=== PATIENT | male | born 1975 | race Caucasian/White ===

== ENCOUNTER 2017-08-03 21:36 | Observation (INO) | payer BC ==
[2017-08-03] MEDS ORDERED: HYDROMORPHONE HCL INJ/PF 2 MG/ML AMPULE IV ONE (23:25)
[2017-08-03] MEDS ORDERED: NORMAL SALINE 500 ML IV ONE (23:25)
[2017-08-03] MEDS ORDERED: ONDANSETRON HCL INJ/PF 4 MG/2 ML SDV IV ONE (23:25)
[2017-08-03 23:39] LABS: ABSOLUTE EOSINOPHILS # (AUTO) 0.1 10^3/uL (0.0-0.6); ABSOLUTE LYMPHOCYTES (AUTO) 1.5 10^3/uL (0.5-4.7); ABSOLUTE MONOCYTES (AUTO) 1.2 10^3/uL (0.1-1.4); ABSOLUTE NEUT (AUTO) 13.2 10^3/uL (1.7-8.2); BASOPHILS % (AUTO) 0.1 % (0-2); EOSINOPHILS % (AUTO) 0.8 % (0-6); HEMATOCRIT 50.6 % (37.9-51.0); HEMOGLOBIN 17.5 g/dL (13.5-17.0); LYMPHOCYTES % (AUTO) 9.5 % (13-45); MEAN CORPUSCULAR HEMOGLOBIN 29.1 pg (27.0-33.4); MEAN CORPUSCULAR HGB CONC 34.5 g/dL (32.0-36.0); MEAN CORPUSCULAR VOLUME 84 fl (80-97); MONOCYTES % (AUTO) 7.3 % (3-13); PLATELET COUNT 180 10^3/uL (150-450); RED BLOOD COUNT 6.01 10^6/uL (4.35-5.55); SEGMENTED NEUTROPHILS % (AUTO) 82.3 % (42-78); TOTAL CELLS COUNTED % (AUTO) 100 %
[2017-08-03 23:46] LABS: ALANINE AMINOTRANSFERASE 40 U/L (21-72); ALBUMIN 4.2 g/dL (3.5-5.0); ALKALINE PHOSPHATASE 55 U/L (38-126); ANION GAP 12 (5-19); ASPARTATE AMINO TRANSFERASE 19 U/L (17-59); BILIRUBIN,DIRECT 0.3 mg/dL (0.0-0.4); BLOOD UREA NITROGEN 16 mg/dL (7-20); CALCIUM 9.8 mg/dL (8.4-10.2); CARBON DIOXIDE 28 mmol/L (22-30); CHLORIDE 103 mmol/L (98-107); GLUCOSE 103 mg/dL (75-110); LIPASE 93.4 U/L (23-300); POTASSIUM 3.9 mmol/L (3.6-5.0); SODIUM 143.1 mmol/L (137-145)
--- NOTE | 2017-08-04 00:12 | ER Document Report ---
ED General - General Chief Complaint: Abdominal Pain Stated Complaint: ABDOMINAL PAIN Time Seen by Provider: 08/03/17 23:02 Notes: Patient is a 42-year-old male who presents with complaints of right lower quadrant abdominal pain. Some nausea. No vomiting. States the pain started this morning. He went to urgent care was turned feel better and therefore left. He then started having severe pain right lower quadrant and came to the ER. No history of abdominal surgeries other than to have a tamy tack removed when he was a child. No diarrhea. No fevers. He is otherwise healthy and takes no medications. No pain into the testicle scrotal region. No history of inguinal hernia. TRAVEL OUTSIDE OF THE [place] IN LAST 30 DAYS: No - Related Data Allergies/Adverse Reactions: Penicillins Allergy (Intermediate, Verified 08/03/17 21:38) Past Medical History - Social History Smoking Status: Never Smoker Chew tobacco use (# tins/day): No Frequency of alcohol use: Occasional Drug Abuse: None Family History: Reviewed & Not Pertinent Patient has suicidal ideation: No Patient has homicidal ideation: No Renal/ Medical History: Denies: Hx Peritoneal Dialysis Review of Systems - Review of Systems Notes: My Normal Review Basic REVIEW OF SYSTEMS: CONSTITUTIONAL : Denies fever, chills, or sweats. Denies recent illness. EENT: Denies eye, ear, throat, or mouth pain or symptoms. Denies nasal or sinus congestion. RESPIRATORY: Denies cough, cold, or chest congestion. Denies shortness of breath, difficulty breathing, or wheezing. GASTROINTESTINAL: Right Lower quadrant. Nausea no vomiting. GENITOURINARY: Denies difficulty urinating, painful urination, burning, frequency, or blood in urine. MUSCULOSKELETAL: Denies neck or back pain or joint pain or swelling. SKIN: Denies rash or skin lesions. NEUROLOGICAL: Denies altered mental status or loss of consciousness. Denies headache. Denies weakness or paralysis or loss of use of either side. Denies problems with gait or speech. Denies sensory or motor loss. ALL OTHER SYSTEMS REVIEWED AND NEGATIVE. Physical Exam - Vital signs Vitals: Temp Pulse Resp BP Pulse Ox 99.3 F 99 18 118/81 96 08/03/17 22:01 08/03/17 22:01 08/03/17 22:01 08/03/17 22:01 06/04/18 22:01 - Notes Notes: General Appearance: Well nourished, alert, cooperative, no acute distress, moderate obvious discomfort. Vitals: reviewed, See vital signs table. Head: no swelling or tenderness to the head Eyes: PERRL, EOMI, Conjuctiva clear Mouth: No decreasd moisture Lungs: No wheezing, No rales, No rhonci, No accessory muscle use, good air exchange bilaterally. Heart: Normal rate, Regular rythm, No murmur, no rub Abdomen: Normal BS, soft, No rigidity, focal right lower quadrant abdominal tenderness palpation., Mild guarding, no rebound, no abdominal masses, no organomegaly Extremities: strength 5/5 in all extremities, good pulses in all extremities, no swelling or tenderness in the extremities, no edema. Skin: warm, dry, appropriate color, no rash Neuro: speech clear, oriented x 3, normal affect, responds appropriately to questions. Course - Re-evaluation Re-evalutation: 08/04/17 00:21 Patient continues to look well. He still has pain focal to right lower quadrant without pain over the remainder the abdomen. He has a leukocytosis 16, 000 with focal right lower quadrant pain very consistent with that of appendicitis. I did call and speak with Dr. Bruce who agrees. No CT scans needed at this time. He said he will come evaluate the patient 6 AM and most likely taken to the OR from there. Will continue monitor the patient throughout the night. He requested to give the patient antibiotic. I have ordered in advance. He says as a child he was given penicillin. He says he thinks he got a rash but does not quite remember. We will start Invanz if he starts have any itching or rash we will stop immediately. On reevaluation of the patient's abdomen his abdomen continues to be very soft with pain still just local to the right lower quadrant. 08/04/17 03:36 Patient is currently resting comfortably without any distress and has normal vital signs. 08/05/17 04:59 Patient was taken to the OR by Dr. Bruce and patient did have sinus. His care in the ER was uncomplicated and he did well. Dictation of this chart was performed using voice recognition software; therefore, there may be some unintended grammatical errors. - Vital Signs Vital signs: Temp Pulse Resp BP Pulse Ox 98.3 F 74 16 108/65 99 08/05/17 03:47 08/05/17 03:47 08/05/17 03:47 08/05/17 03:47 08/05/17 03:47 - Laboratory Result Diagrams: 08/03/17 22:58 08/03/17 22:58 Laboratory results interpreted by me: 08/03/17 22:58 WBC 16.0 H RBC 6.01 H Hgb 17.5 H Seg Neutrophils % 82.3 H Lymphocytes % 9.5 L Absolute Neutrophils 13.2 H Discharge - Discharge Clinical Impression: RLQ abdominal pain Leukocytosis Qualifiers: Leukocytosis type: unspecified Qualified Code(s): D72.829 - Elevated white blood cell count, unspecified
[2017-08-04] MEDS ORDERED: ERTAPENEM SODIUM INJ 1 GM VIAL IV ONE (00:15)
[2017-08-04] MEDS ORDERED: NORMAL SALINE 1000 ML 1,000 ML IV ONE (00:21)
[2017-08-04 00:33] LABS: APPEARANCE,URINE CLEAR; BILIRUBIN,URINE NEGATIVE (NEGATIVE); COLOR,URINE YELLOW; GLUCOSE, URINE NEGATIVE (NEGATIVE); KETONES,URINE NEGATIVE (NEGATIVE); LEUKOCYTE ESTERASE,URINE NEGATIVE (NEGATIVE); NITRITE,URINE NEGATIVE (NEGATIVE); PROTEIN,URINE NEGATIVE (NEGATIVE); URINE SPECIFIC GRAVITY 1.025; UROBILINOGEN,URINE NEGATIVE mg/dL (<2.0)
[2017-08-04] MEDS ORDERED: BUPIVACAINE HCL 0.25 % INJ/PF (2.5 MG/1 ML) 30 ML VIAL ONE (04:06)
[2017-08-04] MEDS ORDERED: FENTANYL CITRATE INJ/PF 100 MCG/2 ML AMPUL ONE ×2 (04:18→04:19)
[2017-08-04] MEDS ORDERED: DEXAMETHASONE SOD PHOSPHATE INJ 4 MG/1 ML VIAL ONE (04:19)
[2017-08-04] MEDS ORDERED: MORPHINE SULFATE 10 MG/ML INJ ONE (04:19)
[2017-08-04] MEDS ORDERED: PROPOFOL INJ 200 MG/20 ML VIAL IV ONE (04:19)
[2017-08-04] MEDS ORDERED: MIDAZOLAM 2 MG/2 ML INJ ONE (04:19)
[2017-08-04] MEDS ORDERED: ONDANSETRON HCL INJ/PF 4 MG/2 ML SDV ONE (04:19)
--- NOTE | 2017-08-04 04:24 | PDOC H&P ---
History of Present Illness Patient complains of: Abdominal pain History of Present Illness: CHIKIS MOTT is a 42 year old male Presents to the emergency department complaining of acute onset abdominal pain, diffuse then localized to the right lower. Last bowel movement 9:00 AM yesterday, normal. Pain persisted, patient seen at urgent care, then declined service as he was feeling better. Pain persisted, patient came to the emergency department where he was found to have localized right lower quadrant tenderness and leukocytosis. Gnosis of acute appendicitis is entertained. Surgery was consulted patient was evaluated, and advised admission and definitive management. Patient denies dysuria. No history of trauma. No history of previous symptoms. Past Medical History Medical History: None Past Surgical History Past Surgical History: Reports: Orthopedic Surgery, Other - Right ankle surgery ; history of foreign body ingestion with extraction Social History Information Source: Patient Lives with: Family Smoking Status: Never Smoker Frequency of Alcohol Use: Occasional Hx Recreational Drug Use: No Hx Prescription Drug Abuse: No Family History Family History: Reviewed & Not Pertinent Parental Family History Reviewed: Yes Children Family History Reviewed: Yes Sibling(s) Family History Reviewed.: Yes Medication/Allergy Allergies/Adverse Reactions: Penicillins Allergy (Intermediate, Verified 08/03/17 21:38) Review of Systems Constitutional: ABSENT: chills, fever(s), headache(s), weight gain, weight loss Eyes: ABSENT: visual disturbances Ears: ABSENT: hearing changes Cardiovascular: ABSENT: chest pain, dyspnea on exertion, edema, orthropnea, palpitations Respiratory: ABSENT: cough, hemoptysis Gastrointestinal: PRESENT: as per HPI Genitourinary: ABSENT: dysuria, hematuria Musculoskeletal: ABSENT: joint swelling Integumentary: ABSENT: rash, wounds Neurological: ABSENT: abnormal gait, abnormal speech, confusion, dizziness, focal weakness, syncope Physical Exam Vital Signs: Temp Pulse Resp BP Pulse Ox 98.6 F 87 17 118/72 100 08/04/17 03:47 08/04/17 03:47 08/04/17 03:47 08/04/17 03:47 08/04/17 03:47 Intake & Output 08/02/17 08/03/17 08/04/17 06:59 06:59 06:59 Weight 92.7 kg General appearance: PRESENT: mild distress Head exam: PRESENT: normocephalic Eye exam: PRESENT: EOMI Ear exam: PRESENT: normal external ear exam Mouth exam: PRESENT: dry mucosa Neck exam: PRESENT: full ROM Respiratory exam: PRESENT: clear to auscultation radha Cardiovascular exam: PRESENT: RRR Pulses: PRESENT: normal carotid pulses, normal radial pulses, normal femoral pulses Vascular exam: PRESENT: normal capillary refill GI/Abdominal exam: PRESENT: other - Focal right lower tenderness with guarding right at McBurney's point. No rigidity no hernias no masses Rectal exam: PRESENT: deferred Extremities exam: PRESENT: full ROM Musculoskeletal exam: PRESENT: full ROM Neurological exam: PRESENT: alert, awake, oriented to person, oriented to place , oriented to time, oriented to situation Psychiatric exam: PRESENT: appropriate affect Skin exam: PRESENT: dry Results Laboratory Results: 08/03/17 22:58 08/03/17 22:58 08/03/17 08/03/17 08/04/17 22:58 22:58 00:14 WBC 16.0 H RBC 6.01 H Hgb 17.5 H Hct 50.6 MCV 84 MCH 29.1 MCHC 34.5 RDW 13.0 Plt Count 180 Seg Neutrophils % 82.3 H Lymphocytes % 9.5 L Monocytes % 7.3 Eosinophils % 0.8 Basophils % 0.1 Absolute Neutrophils 13.2 H Absolute Lymphocytes 1.5 Absolute Monocytes 1.2 Absolute Eosinophils 0.1 Absolute Basophils 0.0 Sodium 143.1 Potassium 3.9 Chloride 103 Carbon Dioxide 28 Anion Gap 12 BUN 16 Creatinine 1.13 Est GFR ( Amer) > 60 Est GFR (Non-Af Amer) > 60 Glucose 103 Calcium 9.8 Total Bilirubin 1.0 AST 19 ALT 40 Alkaline Phosphatase 55 Total Protein 7.0 Albumin 4.2 Lipase 93.4 Urine Color YELLOW Urine Appearance CLEAR Urine pH 5.0 Ur Specific [place] 1.025 Urine Protein NEGATIVE Urine Glucose (UA) NEGATIVE Urine Ketones NEGATIVE Urine Blood NEGATIVE Urine Nitrite NEGATIVE Ur Leukocyte Esterase NEGATIVE Urine WBC (Auto) 2 Urine RBC (Auto) 1 Assessment & Plan - Diagnosis (1) RLQ abdominal pain Is this a current diagnosis for this admission?: Yes Plan: Acute onset right lower quadrant pain, right lower quadrant tenderness with progression, leukocytosis in the absence of other symptoms most consistent with acute appendicitis Recommendations: 1. Proceed with admission, IV fluids, IV antibiotics, and plan laparoscopic, possible open appendectomy; Risks benefits and alternatives of planned procedure explained to patient. He expresses understanding agrees to proceed. - Time Time Spent: 30 to 50 Minutes Critical Time spent with patient: Less than 15 minutes Medications reviewed and adjusted accordingly: Yes Anticipated discharge: Home - Inpatient Certification Based on my medical assessment, after consideration of the patient's comorbidities, presenting symptoms, or acuity I expect that the services needed warrant INPATIENT care.: Yes I certify that my determination is in accordance with my understanding of Medicare's requirements for reasonable and necessary INPATIENT services [42 CFR 412.3e].: Yes Medical Necessity: Need For IV Fluids, Need for Pain Control, Need for IV Antibiotics, Need for Surgery
[2017-08-04] MEDS ORDERED: PROMETHAZINE HCL INJ 25 MG/1 ML VIAL IV PRN ×2 (05:06)
[2017-08-04] MEDS ORDERED: MORPHINE SULFATE 10 MG/ML INJ IV PRN (05:06)
[2017-08-04] MEDS ORDERED: FENTANYL CITRATE INJ/PF 100 MCG/2 ML AMPUL IV PRN ×3 (05:06)
[2017-08-04] MEDS ORDERED: ONDANSETRON HCL INJ/PF 4 MG/2 ML SDV IV PRN ×2 (05:06→05:42)
[2017-08-04] MEDS ORDERED: MEPERIDINE HCL/PF INJ 25 MG/1 ML DISP.SYRIN IV PRN (05:06)
[2017-08-04] MEDS ORDERED: DIPHENHYDRAMINE HCL 50 MG/ML VIAL IV PRN (05:06)
[2017-08-04] MEDS ORDERED: KETOROLAC TROMETHAMINE INJ/PF 30 MG/1 ML SDV IV PRN (05:42)
[2017-08-04] MEDS ORDERED: KETOROLAC TROMETHAMINE 10 MG TABLET PO PRN (05:42)
--- NOTE | 2017-08-04 05:52 | Operative Report ---
Operative Report DATE OF SURGERY: 08/04/17 PREOPERATIVE DIAGNOSIS: Acute appendicitis POSTOPERATIVE DIAGNOSIS: Acute, separative appendicitis OPERATION: Laparoscopic appendectomy with drain placement SURGEON: BOBBY ZAPATA ANESTHESIA: GA TISSUE REMOVED OR ALTERED: 1 appendix COMPLICATIONS: None ESTIMATED BLOOD LOSS: Medical INTRAOPERATIVE FINDINGS: Acute suppurative pre-rupturing appendix PROCEDURE: The patient was taken to the preop holding area to the main operating room where general anesthesia was induced. Patient had voided prior to arrival. Arms abducted, abdomen clipped of hair, prepped and draped in a sterile fashion. Instrumentation set up for laparoscopic appendectomy. Surgical plan surgical timeout were conducted. Markings were made on the skin for 3 port appendectomy. Skin was anesthetized with 1% plain lidocaine above the umbilicus, and the suprapubic area in the left lower quadrant. A vertically oriented incision was made just above the umbilicus. Veress needle was inserted into the peritoneal cavity pneumoperitoneum was established. Veress needle was removed, 5 mm port was inserted, 5 mm flexible viewing scope was inserted. Under direct visualization 2 additional ports were placed one 5 mm in the suprapubic region midline, and the left lower quadrant 12 mm port. Patient was placed in Trendelenburg position and rotated to the left side. The findings were significant for acute, suppurative appendicitis with the appendix located in a retrocecal position. Using a combination of blunt, and suction dissection, as well as LigaSure dissector, I was able to bluntly mobilize the firm, enlarged thickened acutely inflamed appendix extending cephalad behind the cecum up into the free peritoneal space. All attachments were broken up such that the appendix was now suspended solely from its base. These were taken. We now brought onto the field a 45 mm Endo AD, blue load stapler the appendix was amputated at its base with a single firing. The specimen was now placed in an Endobag uneventfully. Of note during the mobilization of the appendix, there was some purulent discharge leaking around the appendix. Prior to this manipulation, there was no of peritonitis. Because of this localized contamination, only minimal limited irrigation was performed. There was no significant bleeding. We inspected the staple line at the cecum it was intact. A large Joe drain was placed through the supraumbilical port site, trimmed to the appropriate length, and laid against the retroperitoneum on the right side. Sponge and needle counts are correct. All ports removed under direct visualization, Joe drain secured with 2-0 Prolene suture and all wounds closed with 3-0 Vicryl benzoin and Steri-Strips. Patient tolerated procedure well, extubated, and taken to recovery in stable condition.
[2017-08-04] MEDS: FENTANYL CITRATE INJ/PF 100 MCG/2 ML AMPUL ONE ×2 (06:10→06:15)
[2017-08-04] MEDS ORDERED: MORPHINE SULFATE 10 MG/ML INJ IV ONE (09:00)
[2017-08-04] MEDS ORDERED: ERTAPENEM SODIUM 1 GM in NORMAL SALINE 50 ML IV SCH (10:00)
[2017-08-04] MEDS: OXYCODONE-ACETAMINOPHEN 5-325 MG TABLET PO PRN ×2 (12:56→21:50)
[2017-08-04] MEDS ORDERED: ROCURONIUM BROMIDE INJ 50 MG/5 ML VIAL IV ONE (19:47)
[2017-08-04] MEDS ORDERED: SUCCINYLCHOLINE CHLORIDE INJ 200 MG/10 ML VIAL ONE (19:47)
[2017-08-05 07:19] VITALS: BP 114/67
[2017-08-05] MEDS: OXYCODONE-ACETAMINOPHEN 5-325 MG TABLET PO PRN (08:05)
== END 2017-08-05 11:18 | disposition home or self-care (01) ==
LOC: ER 21:36 → EH 08-04 04:28 → 3N 08-04 06:55
PROVIDERS: ATTEND Surgery
PROC: 0DTJ4ZZ Resection of Appendix, Percutaneous Endoscopic Approach (ICD-10-PCS; principal; 2017-08-03)
DX: K35.3 Acute appendicitis with localized peritonitis (principal); Z98.890 Other specified postprocedural states
CPT/HCPCS: 99285; 96361; 96375; 96365; 36415; 83690; 85025; 80053; 81001; 88304 ×2; 44970; G0378 ×4; J2250; J3490; J1100; J3010; J1335; J1885; J2270; J1170; J0330; J2405 ×2; J7030; J7040; J2704; 840

== ENCOUNTER 2017-08-24 09:23 | Inpatient (IN) | payer BC ==
[2017-08-24 10:17] LABS: ABSOLUTE MONOCYTES (AUTO) 1.4 10^3/uL (0.1-1.4); ABSOLUTE NEUT (AUTO) 13.5 10^3/uL (1.7-8.2); BASOPHILS % (AUTO) 0.3 % (0-2); EOSINOPHILS % (AUTO) 0.2 % (0-6); HEMATOCRIT 42.5 % (37.9-51.0); HEMOGLOBIN 14.9 g/dL (13.5-17.0); LYMPHOCYTES % (AUTO) 6.3 % (13-45); MEAN CORPUSCULAR VOLUME 83 fl (80-97); MONOCYTES % (AUTO) 8.6 % (3-13); PLATELET COUNT 274 10^3/uL (150-450); RED BLOOD COUNT 5.14 10^6/uL (4.35-5.55); RED CELL DISTRIBUTION WIDTH 12.6 % (11.5-14.0); SEGMENTED NEUTROPHILS % (AUTO) 84.6 % (42-78); TOTAL CELLS COUNTED % (AUTO) 100 %; WHITE BLOOD COUNT 15.9 10^3/uL (4.0-10.5)
[2017-08-24 10:30] LABS: BILIRUBIN,URINE NEGATIVE (NEGATIVE); GLUCOSE, URINE NEGATIVE (NEGATIVE); KETONES,URINE NEGATIVE (NEGATIVE); LEUKOCYTE ESTERASE,URINE NEGATIVE (NEGATIVE); NITRITE,URINE NEGATIVE (NEGATIVE); PROTEIN,URINE 30 mg/dL (NEGATIVE); URINE SPECIFIC GRAVITY 1.032; UROBILINOGEN,URINE NEGATIVE mg/dL (<2.0)
[2017-08-24 10:37] LABS: APPEARANCE,URINE SLIGHTLY-CLOUDY; COLOR,URINE YELLOW
[2017-08-24 10:47] LABS: ALANINE AMINOTRANSFERASE 33 U/L (21-72); ALBUMIN 3.7 g/dL (3.5-5.0); ALKALINE PHOSPHATASE 63 U/L (38-126); ANION GAP 14 (5-19); ASPARTATE AMINO TRANSFERASE 20 U/L (17-59); BILIRUBIN,DIRECT 0.5 mg/dL (0.0-0.4); BILIRUBIN,TOTAL 0.6 mg/dL (0.2-1.3); BLOOD UREA NITROGEN 18 mg/dL (7-20); CALCIUM 9.6 mg/dL (8.4-10.2); CARBON DIOXIDE 25 mmol/L (22-30); CHLORIDE 105 mmol/L (98-107); GLUCOSE 102 mg/dL (75-110); POTASSIUM 4.1 mmol/L (3.6-5.0); SODIUM 143.7 mmol/L (137-145); TOTAL PROTEIN 6.7 g/dL (6.3-8.2)
--- NOTE | 2017-08-24 13:51 | RADIOLOGY REPORT (SQ) ---
EXAM DESCRIPTION: CT ABD/PELVIS ORAL ONLY COMPLETED DATE/TIME: 08/24/2017 1:31 pm REASON FOR STUDY: RLQ PAIN(R10.31), FEVER (R50.9),ACQUIRED ABSENCE OF OTHER SPECIFIED PARTS O R10.31 RIGHT LOWER QUADRANT PAIN R50.9 FEVER, UNSPECIFIED Z90.49 ACQUIRED ABSENCE OF OTHER SPECIFIED PAR TS OF DIGESTIV COMPARISON: None. TECHNIQUE: CT scan of the abdomen and pelvis performed with oral contrast and no intravenous contras t. Images reviewed with lung, soft tissue, and bone windows. Reconstructed coronal and sagittal MPR i mages reviewed. All images stored on PACS. All CT scanners at this facility use dose modulation, iterative reconstruction, and/or weight based d osing when appropriate to reduce radiation dose to as low as reasonably achievable (ALARA). [facility]: Dose Right [facility]: CareDose [facility]: Dose Right [facility]: Teradose 4D [facility]: [employer] RADIATION DOSE: CT Rad equipment meets quality standard of care and radiation dose reduction techniq ues were employed. CTDIvol: 7.8 mGy. DLP: 442 mGy-cm.mGy. LIMITATIONS: None. FINDINGS: LOWER CHEST: No significant findings. No nodules or infiltrates. NON-CONTRASTED LIVER, SPLEEN, ADRENALS: Evaluation limited by lack of IV contrast. No identified sign ificant masses. PANCREAS: No masses. No peripancreatic inflammatory changes. GALLBLADDER: No identified stones by CT criteria. No inflammatory changes to suggest cholecystitis. RIGHT KIDNEY AND URETER: No solid masses. No significant calcification. No hydronephrosis or hydroure ter. LEFT KIDNEY AND URETER: No solid masses. No significant calcification. No hydronephrosis or hydrouret er. AORTA AND RETROPERITONEUM: No aneurysm. No retroperitoneal masses or adenopathy. BOWEL AND PERITONEAL CAVITY: No obvious masses or inflammatory changes. No free fluid. APPENDIX: Surgically absent. There is heterogenous material extending from the end of the cecum in a cephalad direction posterior to the ascending colon to the tip of the liver. This material has hete rogenous mixed density interspersed in the pericolonic fat. There is no focal clear-cut fluid collec tion at this time. Maximum transverse measurement 4 cm and overall length of involvement in the cran iocaudal direction is 9 cm. There are enlarged lymph nodes in the adjacent mesenteric. PELVIS, BLADDER, AND ABDOMINAL WALL: No abnormal pelvic masses. No abdominal wall hernias. Bladder un remarkable. BONES: No significant findings. OTHER: No other significant finding. IMPRESSION: 1. POST APPENDECTOMY WITH HETEROGENOUS MATERIAL AT THE SURGICAL SITE DESCRIBED. GIVEN THE CLINICA L HISTORY, THIS MOST LIKELY REPRESENTS POSTOPERATIVE INFECTION WITH DEVELOPING ABSCESS AND/OR INFECTE D HEMATOMA. THE HETEROGENOUS MATERIAL IS INTERSPERSED IN THE PERICOLONIC FAT AND THERE IS NO FOCAL D ISCRETE DRAINABLE FLUID COLLECTION AT THIS TIME. 2. NO OTHER SIGNIFICANT FINDINGS. TECHNICAL DOCUMENTATION: JOB ID: [id number] Quality ID # [id number]: Final reports with documentation of one or more dose reduction techniques (e.g., Au tomated exposure control, adjustment of the mA and/or kV according to patient size, use of iterative reconstruction technique) 2010 [employer]- All Rights Reserved Reading location - IP/workstation name: [email or web address]
[2017-08-24] MEDS ORDERED: KETOROLAC TROMETHAMINE INJ/PF 30 MG/1 ML SDV IV PRN (14:47)
[2017-08-24] MEDS: AMPICILLIN SODIUM/SULBACTAM NA 3 GM in NORMAL SALINE 100 ML IV SCH (18:21)
[2017-08-24] MEDS: KETOROLAC TROMETHAMINE INJ/PF 30 MG/1 ML SDV IV PRN (18:24)
--- NOTE | 2017-08-24 19:48 | PDOC H&P ---
History of Present Illness Admission Date/PCP: 08/24/17 15:57 SARATH ELIZALDE PA-C Patient complains of: Abdominal pain, fevers History of Present Illness: CHIKIS MOTT is a 42 year old male Now 3 weeks status post laparoscopic appendectomy for acute appendicitis by Dr. Bruce [facility]. This was a retrocecal appendix with appendiceal inflammation. He had a drain placed and this was removed postoperative day 2. Patient was discharged home on total days of p.o. antibiotics. Patient was seen at [facility] approximately 2 weeks ago, and was cleared for return to regular activities as he was doing well. Patient return to work and did fine until 3 days ago when he developed fever chills and shaking sensation, decreased urine output and right lower quadrant tenderness. Because of persisting symptoms he was seen at [facility] this morning where he was sent then to [facility] for blood work and CT scan which revealed a leukocytosis left shift and the scan showed retrocecal amatory changes consistent with evolving abscess. Patient was admitted to the surgical service for management of postoperative intra- abdominal infection Past Surgical History Past Surgical History: Reports: Appendectomy, Orthopedic Surgery, Other - Right ankle surgery; history of foreign body ingestion with extraction Social History Smoking Status: Never Smoker Frequency of Alcohol Use: Occasional Hx Recreational Drug Use: No Drugs: None Hx Prescription Drug Abuse: No - Advance Directive Resuscitation Status: Full Code Family History Family History: Reviewed & Not Pertinent Parental Family History Reviewed: Yes Children Family History Reviewed: Yes Sibling(s) Family History Reviewed.: Yes Medication/Allergy Home Medications: No Home Medications 08/24/17 Allergies/Adverse Reactions: Penicillins Allergy (Intermediate, Verified 08/03/17 21:38) Review of Systems Constitutional: PRESENT: as per HPI Eyes: ABSENT: visual disturbances Ears: ABSENT: hearing changes Cardiovascular: ABSENT: chest pain, dyspnea on exertion, edema, orthropnea, palpitations Gastrointestinal: ABSENT: abdominal pain, constipation, diarrhea, hematemesis, hematochezia, nausea, vomiting Genitourinary: PRESENT: other - Dark urine Musculoskeletal: ABSENT: joint swelling Integumentary: ABSENT: rash, wounds Physical Exam Vital Signs: Temp Pulse Resp BP Pulse Ox 99.7 F 103 H 18 130/83 H 97 08/24/17 16:25 08/24/17 16:25 08/24/17 16:25 08/24/17 16:25 08/24/17 16:25 Intake & Output 08/23/17 08/24/17 08/25/17 06:59 06:59 06:59 Weight 90.446 kg General appearance: PRESENT: no acute distress Head exam: PRESENT: normocephalic Eye exam: PRESENT: EOMI Mouth exam: PRESENT: dry mucosa Neck exam: PRESENT: full ROM Respiratory exam: PRESENT: clear to auscultation radha Cardiovascular exam: PRESENT: RRR Pulses: PRESENT: normal carotid pulses, normal radial pulses, normal femoral pulses GI/Abdominal exam: PRESENT: other - Operative incisions well-healed; no peritoneal signs no rigidity; some right lower quadrant tenderness; there is right flank tenderness. No cellulitic changes Rectal exam: PRESENT: deferred Extremities exam: PRESENT: full ROM Musculoskeletal exam: PRESENT: full ROM Neurological exam: PRESENT: alert, awake, oriented to person, oriented to place , oriented to time, oriented to situation Results Laboratory Results: 08/24/17 10:11 08/24/17 10:11 08/24/17 08/24/17 08/24/17 10:11 10:11 10:11 WBC 15.9 H RBC 5.14 Hgb 14.9 Hct 42.5 MCV 83 MCH 29.0 MCHC 35.0 RDW 12.6 Plt Count 274 Seg Neutrophils % 84.6 H Lymphocytes % 6.3 L Monocytes % 8.6 Eosinophils % 0.2 Basophils % 0.3 Absolute Neutrophils 13.5 H Absolute Lymphocytes 1.0 Absolute Monocytes 1.4 Absolute Eosinophils 0.0 Absolute Basophils 0.0 Sodium 143.7 Potassium 4.1 Chloride 105 Carbon Dioxide 25 Anion Gap 14 BUN 18 Creatinine 1.16 Est GFR ( Amer) > 60 Est GFR (Non-Af Amer) > 60 Glucose 102 Calcium 9.6 Total Bilirubin 0.6 AST 20 ALT 33 Alkaline Phosphatase 63 Total Protein 6.7 Albumin 3.7 Urine Color YELLOW Urine Appearance SLIGHTLY-CLOUDY Urine pH 5.0 Ur Specific [place] 1.032 Urine Protein 30 H Urine Glucose (UA) NEGATIVE Urine Ketones NEGATIVE Urine Blood NEGATIVE Urine Nitrite NEGATIVE Ur Leukocyte Esterase NEGATIVE Urine WBC (Auto) 1 Urine RBC (Auto) 0 Impressions: Abdomen/Pelvis CT 08/24/17 09:57 IMPRESSION: 1. POST APPENDECTOMY WITH HETEROGENOUS MATERIAL AT THE SURGICAL SITE DESCRIBED. GIVEN THE CLINICAL HISTORY, THIS MOST LIKELY REPRESENTS POSTOPERATIVE INFECTION WITH DEVELOPING ABSCESS AND/OR INFECTED HEMATOMA. THE HETEROGENOUS MATERIAL IS INTERSPERSED IN THE PERICOLONIC FAT AND THERE IS NO FOCAL DISCRETE DRAINABLE FLUID COLLECTION AT THIS TIME. 2. NO OTHER SIGNIFICANT FINDINGS. Assessment & Plan - Diagnosis (1) Postoperative abscess Is this a current diagnosis for this admission?: Yes Plan: Clinical history laboratory profile and CT scan findings all consistent with postoperative intra-abdominal infection, specifically right retrocecal the descending colon phlegmon Recommendations: 1. Admit to surgical service, IV fluids, intravenous antibiotics 2. Discuss with Dr. Lee, interventional radiologist tomorrow, possibility of percutaneous drainage, at least aspiration of the retrocecal collection. 3. Switch patient from Unasyn to clindamycin. (2) Status post laparoscopic appendectomy Is this a current diagnosis for this admission?: Yes - Time Time Spent: 30 to 50 Minutes Critical Time spent with patient: Less than 15 minutes Medications reviewed and adjusted accordingly: Yes Anticipated discharge: Home
[2017-08-24] MEDS: ACETAMINOPHEN 325 MG TABLET PO PRN (20:42)
[2017-08-24] MEDS: CLINDAMYCIN 900 MG/D5W RTU 900 MG/50 ML RTUPB IV SCH (21:53)
[2017-08-24] MEDS ORDERED: AMPICILLIN SODIUM/SULBACTAM NA 3 GM in NORMAL SALINE 100 ML IV SCH (22:00)
[2017-08-25] MEDS: AMPICILLIN SODIUM/SULBACTAM NA 3 GM in NORMAL SALINE 100 ML IV SCH (01:20)
[2017-08-25] MEDS: ACETAMINOPHEN 325 MG TABLET PO PRN ×3 (03:20→21:38)
[2017-08-25] MEDS: CLINDAMYCIN 900 MG/D5W RTU 900 MG/50 ML RTUPB IV SCH ×3 (05:08→21:39)
[2017-08-25] MEDS: NORMAL SALINE 1000 ML 1,000 ML IV PRN ×3 (07:33→21:44)
[2017-08-25] MEDS: KETOROLAC TROMETHAMINE INJ/PF 30 MG/1 ML SDV IV PRN ×2 (08:08→14:57)
[2017-08-25 08:45] LABS: INTERNATIONAL RATION (INR) 1.06; PARTIAL THROMBOPLASTIN TIME 35.4 SEC (23.5-35.8); PROTHROMBIN TIME 14.3 SEC (11.4-15.4)
[2017-08-25] MEDS ORDERED: NORMAL SALINE 500 ML IV ONE (09:30)
[2017-08-25] MEDS ORDERED: MIDAZOLAM 2 MG/2 ML INJ ONE (10:43)
[2017-08-25] MEDS ORDERED: FENTANYL CITRATE INJ/PF 100 MCG/2 ML AMPUL ONE ×2 (10:44→11:20)
[2017-08-25] MEDS ORDERED: LIDOCAINE 1% INJ-PF (10 MG/ML) 30 ML SDV ONE (10:44)
--- NOTE | 2017-08-25 12:37 | RADIOLOGY REPORT (SQ) ---
EXAM DESCRIPTION: CT GUIDED PERCUT DRAIN W/CATH COMPLETED DATE/TIME: 08/25/2017 12:10 pm REASON FOR STUDY: ABCESS. HAS SPOKE WITH DR. BAER R10.31 RIGHT LOWER QUADRANT PAIN R50.9 FEVER, UNSPECIFIED Z90.49 ACQUIRED ABSENCE OF OTHER SPECIFIED PARTS OF DIGESTIV COMPARISON: None. TECHNIQUE: After obtaining informed consent and explaining the risks and benefits of conscious sedat ion,the patient agreed to the procedure. The patient was brought to the CT suite and was placed supin e on the CT gurney. The patient was prepped and draped in the usual sterile fashion . Axial images w ere obtained for targeting of theretrocecal abscess. An appropriate access site was selected. IV conscious sedation was administered and physician direction by the registered nurse using 1 millig ian of Versed and 100 micrograms of fentanyl. Physiologic monitoring was provided before, during, an d after sedation. The total sedation time was 30 minutes. Documentation face to face time, the performing proceduralist, spent monitoring the patient: 10minute s. Noncontrasted CT of the right lower quadrant was performed to localize an approach for the retroceca l abscess drainage. A percutaneous site was marked. Time out was performed. After skin prep and local lidocaine for skin and deep tissue anesthesia, an 18 gauge needle was used to access to retrocecal abscess. 10 mL of green foul-smelling purulent material was obtained, sent for Gram stain culture and sensitivity to microbiology. At this point, a 0.38 guidewire was passed t hrough the 18 gauge needle into the abscess cavity, the tract was dilated with an 8 [place] dilator an d 10 [place] dilator, and a 10 [place] locking pigtail catheter was placed with the pigtail loop in the retrocecal abscess. Pigtail catheter was locked in place, and secured to the patient's skin to a gr avity drainage bag. No immediate postprocedure complications. Total of 6.[address] fluoro was used. 36 CT Fluoroscopic images were obtained and saved to PACS. All CT scanners at this facility use dose modulation, iterative reconstruction, and/or weight based d osing when appropriate to reduce radiation dose to as low as reasonably achievable (ALARA). [facility]: Dose Right [facility]: CareDose [facility]: Dose Right [facility]: Teradose 4D [facility]: [employer] RADIATION DOSE: CT Rad equipment meets quality standard of care and radiation dose reduction techniq ues were employed. CTDIvol: 19.8 mGy. DLP: 390 mGy-cm. mGy. LIMITATIONS: None. FINDINGS: CT guided retrocecal abscess drainage with 10 [place] locking pigtail catheter. IV conscio us sedation IMPRESSION: CT GUIDED RETROCECAL ABSCESS DRAINAGE PERFORMED ABOVE. INDWELLING 10 LITHUANIAN LOCKING PIGTAIL CATHETER TO GRAVITY SUCTION. SPECIMEN OF ABSCESS FLUID WAS SENT FOR GRAM STAIN CULTURE AND SENSITIVITY WHICH IS PENDING. IV CONSCIOUS SEDATION COMMENT: Patient medication list reviewed:Yes- Quality ID# [id number]:Eligible professional attests to docu menting in the medical record they obtained, updated, or reviewed the patient's current medications.. Quality ID [id number]: Final reports for procedures using fluoroscopy that document radiation exposure clare rambo, or exposure time and number of fluorographic images (if radiation exposure indices are not avail able) TECHNICAL DOCUMENTATION: JOB ID: [id number] Quality ID # [id number]: Final reports with documentation of one or more dose reduction techniques (e.g., A utomated exposure control, adjustment of the mA and/or kV according to patient size, use of iterative reconstruction technique) 2010 [employer]- All Rights Reserved Reading location - IP/workstation name: [email or web address]
[2017-08-25 13:18] LABS: FLUID APPEARANCE OPAQUE; FLUID COLOR YELLOW; FLUID VISCOSITY HIGHLY VISCOUS
[2017-08-25 13:19] LABS: FLUID TYPE ABCESS
--- NOTE | 2017-08-25 16:02 | PDOC PROGRESS REPORT ---
Subjective Progress Note for:: 08/25/17 Subjective:: RLQ pains Reason For Visit: RETROCECAL ABSCESS Physical Exam Vital Signs: Temp Pulse Resp BP Pulse Ox 100.2 F 97 16 106/65 96 08/25/17 08:23 08/25/17 08:23 08/25/17 08:23 08/25/17 08:23 08/25/17 08:23 Intake & Output 08/24/17 08/25/17 08/26/17 06:59 06:59 06:59 Intake Total 1200 Balance 1200 Weight 90.4 kg Exam: Successful placement of Drainage cath to retroperitoneal abscess by IR Dr Stan Elias. Specimen for C/S collected and sent to Lab. Results Laboratory Results: 08/24/17 10:11 08/24/17 10:11 08/25/17 11:20 Fluid Type ABCESS Fluid Source Fluid Color YELLOW Fluid Appearance OPAQUE Fluid Viscosity HIGHLY VISCOUS Fluid WBC [id number] Fluid RBC 878 Impressions: Abdomen/Pelvis CT 08/24/17 09:57 IMPRESSION: 1. POST APPENDECTOMY WITH HETEROGENOUS MATERIAL AT THE SURGICAL SITE DESCRIBED. GIVEN THE CLINICAL HISTORY, THIS MOST LIKELY REPRESENTS POSTOPERATIVE INFECTION WITH DEVELOPING ABSCESS AND/OR INFECTED HEMATOMA. THE HETEROGENOUS MATERIAL IS INTERSPERSED IN THE PERICOLONIC FAT AND THERE IS NO FOCAL DISCRETE DRAINABLE FLUID COLLECTION AT THIS TIME. 2. NO OTHER SIGNIFICANT FINDINGS. Percutaneous Drainage 08/25/17 00:00 IMPRESSION: CT GUIDED RETROCECAL ABSCESS DRAINAGE PERFORMED ABOVE. INDWELLING 10 SWISS LOCKING PIGTAIL CATHETER TO GRAVITY SUCTION. SPECIMEN OF ABSCESS FLUID WAS SENT FOR GRAM STAIN CULTURE AND SENSITIVITY WHICH IS PENDING. IV CONSCIOUS SEDATION Assessment & Plan - Time Time Spent with patient: 15-24 minutes - Plan Summary Plan Summary: Continue IV antibiotics
[2017-08-26] MEDS: CLINDAMYCIN 900 MG/D5W RTU 900 MG/50 ML RTUPB IV SCH ×3 (05:30→21:22)
[2017-08-26] MEDS: KETOROLAC TROMETHAMINE INJ/PF 30 MG/1 ML SDV IV PRN ×2 (08:48→23:45)
--- NOTE | 2017-08-26 14:14 | PDOC PROGRESS REPORT ---
Subjective Progress Note for:: 08/26/17 Subjective:: Feels more comfortable today Reason For Visit: RETROCECAL ABSCESS Physical Exam Vital Signs: Temp Pulse Resp BP Pulse Ox 98.5 F 66 14 111/72 98 08/26/17 03:20 08/26/17 03:20 08/26/17 03:20 08/26/17 03:20 08/26/17 03:20 Intake & Output 08/25/17 08/26/17 08/27/17 06:59 06:59 06:59 Intake Total 1200 5306 Balance 1200 5306 Weight 90.4 kg 96.6 kg 96.6 kg Exam: Drain about 30 ccs bloody fluid Abd is soft and non tender Results Laboratory Results: 08/24/17 10:11 08/24/17 10:11 Impressions: Abdomen/Pelvis CT 08/24/17 09:57 IMPRESSION: 1. POST APPENDECTOMY WITH HETEROGENOUS MATERIAL AT THE SURGICAL SITE DESCRIBED. GIVEN THE CLINICAL HISTORY, THIS MOST LIKELY REPRESENTS POSTOPERATIVE INFECTION WITH DEVELOPING ABSCESS AND/OR INFECTED HEMATOMA. THE HETEROGENOUS MATERIAL IS INTERSPERSED IN THE PERICOLONIC FAT AND THERE IS NO FOCAL DISCRETE DRAINABLE FLUID COLLECTION AT THIS TIME. 2. NO OTHER SIGNIFICANT FINDINGS. Percutaneous Drainage 08/25/17 00:00 IMPRESSION: CT GUIDED RETROCECAL ABSCESS DRAINAGE PERFORMED ABOVE. INDWELLING 10 CHILEAN LOCKING PIGTAIL CATHETER TO GRAVITY SUCTION. SPECIMEN OF ABSCESS FLUID WAS SENT FOR GRAM STAIN CULTURE AND SENSITIVITY WHICH IS PENDING. IV CONSCIOUS SEDATION Assessment & Plan - Time Time Spent with patient: 15-24 minutes - Plan Summary Plan Summary: Continue IV antibiotics 24-48 hrs Increase diet
[2017-08-26] MEDS: NORMAL SALINE 1000 ML 1,000 ML IV PRN (14:34)
[2017-08-27] MEDS: CLINDAMYCIN 900 MG/D5W RTU 900 MG/50 ML RTUPB IV SCH ×2 (05:21→14:16)
[2017-08-27 06:33] LABS: ABSOLUTE EOSINOPHILS # (AUTO) 0.3 10^3/uL (0.0-0.6); ABSOLUTE LYMPHOCYTES (AUTO) 1.1 10^3/uL (0.5-4.7); ABSOLUTE MONOCYTES (AUTO) 0.6 10^3/uL (0.1-1.4); ABSOLUTE NEUT (AUTO) 3.2 10^3/uL (1.7-8.2); BASOPHILS % (AUTO) 0.7 % (0-2); EOSINOPHILS % (AUTO) 5.1 % (0-6); HEMATOCRIT 41.7 % (37.9-51.0); HEMOGLOBIN 14.1 g/dL (13.5-17.0); LYMPHOCYTES % (AUTO) 21.1 % (13-45); MEAN CORPUSCULAR HEMOGLOBIN 28.3 pg (27.0-33.4); MEAN CORPUSCULAR HGB CONC 33.8 g/dL (32.0-36.0); MEAN CORPUSCULAR VOLUME 84 fl (80-97); MONOCYTES % (AUTO) 11.7 % (3-13); PLATELET COUNT 241 10^3/uL (150-450); RED BLOOD COUNT 4.98 10^6/uL (4.35-5.55); SEGMENTED NEUTROPHILS % (AUTO) 61.4 % (42-78); TOTAL CELLS COUNTED % (AUTO) 100 %; WHITE BLOOD COUNT 5.2 10^3/uL (4.0-10.5)
--- NOTE | 2017-08-27 12:57 | PDOC DISCHARGE SUMMARY ---
General - Admit/Disc Date/PCP Admission Date/Primary Care Provider: 08/26/17 16:07 SARATH ELIZALDE PA-C Discharge Date: 08/27/17 - Discharge Diagnosis (1) Postoperative abscess Is this a current diagnosis for this admission?: Yes - Additional Information Resuscitation Status: Full Code Discharge Diet: As Tolerated Discharge Activity: Slowly Increase Activity Home Medications: No Home Medications 08/24/17 History of Present Illness History of Present Illness: CHIKIS MOTT is a 42 year old male status post laparoscopic appendectomy. Several weeks after the operation, he was found to have fevers, chills, abdominal pain, and a leukocytosis. Patient was seen in the office, and sent to the hospital for workup. The patient underwent CT scanning showing a right sided intra-abdominal abscess. She was admitted to the hospital for definitive care. Hospital Course Hospital Course: Patient was admitted to the hospital, radiology was consulted for drain placement. The patient underwent percutaneous interventional radiology drain placement. The patient's fever subsided, and his leukocytosis resolved. 2017 the patient was ambulating, tolerating a diet, pain was controlled with pain medications, and it was felt that he had reached maximal hospital benefit. The patient at this time is medically fit for discharge. Physical Exam Vital Signs: Temp Pulse Resp BP Pulse Ox 97.6 F 74 19 120/81 97 08/27/17 11:44 08/27/17 11:44 08/27/17 11:44 08/27/17 11:44 08/27/17 11:44 Intake & Output 08/26/17 08/27/17 08/28/17 06:59 06:59 06:59 Intake Total 5306 3676 Balance 5306 3676 Weight 96.6 kg 96.6 kg Results Laboratory Results: 08/27/17 05:30 08/24/17 10:11 08/27/17 05:30 WBC 5.2 RBC 4.98 Hgb 14.1 Hct 41.7 MCV 84 MCH 28.3 MCHC 33.8 RDW 13.0 Plt Count 241 Seg Neutrophils % 61.4 Lymphocytes % 21.1 Monocytes % 11.7 Eosinophils % 5.1 Basophils % 0.7 Absolute Neutrophils 3.2 Absolute Lymphocytes 1.1 Absolute Monocytes 0.6 Absolute Eosinophils 0.3 Absolute Basophils 0.0 Impressions: Abdomen/Pelvis CT 08/24/17 09:57 IMPRESSION: 1. POST APPENDECTOMY WITH HETEROGENOUS MATERIAL AT THE SURGICAL SITE DESCRIBED. GIVEN THE CLINICAL HISTORY, THIS MOST LIKELY REPRESENTS POSTOPERATIVE INFECTION WITH DEVELOPING ABSCESS AND/OR INFECTED HEMATOMA. THE HETEROGENOUS MATERIAL IS INTERSPERSED IN THE PERICOLONIC FAT AND THERE IS NO FOCAL DISCRETE DRAINABLE FLUID COLLECTION AT THIS TIME. 2. NO OTHER SIGNIFICANT FINDINGS. Percutaneous Drainage 08/25/17 00:00 IMPRESSION: CT GUIDED RETROCECAL ABSCESS DRAINAGE PERFORMED ABOVE. INDWELLING 10 MONGOLIAN LOCKING PIGTAIL CATHETER TO GRAVITY SUCTION. SPECIMEN OF ABSCESS FLUID WAS SENT FOR GRAM STAIN CULTURE AND SENSITIVITY WHICH IS PENDING. IV CONSCIOUS SEDATION Qualifiers - * PATIENT BEING DISCHARGED WITH ANY OF THE FOLLOWING DIAGNOSIS: No Plan Discharge Plan: Discharge home on clindamycin 300 mg p.o. 4 times per day. Follow-up at [place] [facility] in 1 week. Diet as tolerated, activity nonstrenuous. No work until cleared by me. Empty drain and monitor output daily. Time Spent: Less than 30 Minutes
[2017-08-27 14:07] VITALS: BP 106/65
== END 2017-08-27 15:40 | disposition home or self-care (01) | DRG 863 ==
LOC: EDSTATUS 09:30 → RAD 10:01 → INTOOBSV 15:57 → 5 15:57 → OBSVTOIN 08-26 16:07
PROVIDERS: ADMIT Surgery; ATTEND Surgery
PROC: 0W9H30Z Drainage of Retroperitoneum with Drainage Device, Percutaneous Approach (ICD-10-PCS; principal; 2017-08-25)
DX: K68.11 Postprocedural retroperitoneal abscess (principal); Z88.0 Allergy status to penicillin
CPT/HCPCS: 10022; 36415; 74176; 75989; 80053; 81001; 85025; 85610; 85730; 87070; 87075; 87077; 87186; 87205; 89050; C1729; C1894; G0378; G0379; J0295; J1885; J2250; J3010; J3490; J7030; J7040